=== PATIENT | male | born 1945 | race Caucasian/White ===

== ENCOUNTER 2020-04-22 15:27 | Observation (INO) ==
[2020-04-22 17:26] LABS: ABS Basophils 0.1 10^3/ul (0-0.2); ABS Eosinophils 0.2 10^3/ul (0-0.6); ABS Lymphocytes 1.5 10^3/ul (1.0-4.8); ABS Monocytes 1.3 10^3/ul (0-0.8); Eosinophil % 1.5 %; Hematocrit 42 % (42-52); Hemoglobin 14.9 g/dL (14.0-18.0); Lymphocyte % 15.4 %; Mean Corpuscular HGB Conc 35 g/dL (31-36); Mean Corpuscular Hemoglobin 32 pg (27-31); Mean Corpuscular Volume 89 fL (80-94); Mean Platelet Volume 7.4 fL (7.4-10.4); Platelet Count 310 10^3/uL (150-450); Red Blood Count 4.74 10^6 /uL (4.18-5.48); Red Cell Distribution Width 15 % (10-15)
[2020-04-22 17:40] LABS: Activated Partial Thrombo Time 29.5 seconds (26.0-38.0); INR 1.02 (0.82-1.09)
[2020-04-22 17:48] LABS: Troponin I 0.01 ng/mL (<0.03)
[2020-04-22 17:53] LABS: Albumin 4.2 g/dL (3.2-5.2); Albumin/Globulin Ratio 1.5 (1-3); BUN/Creatinine Ratio 14.8 (8-20); Calcium 9.9 mg/dL (8.6-10.3); EGFR African American 59.3 (>60); Globulin 2.8 g/dL (2-4); Potassium 3.6 mmol/L (3.5-5.0); Total Bilirubin 0.4 mg/dL (0.2-1.0)
[2020-04-22 18:26] LABS: Magnesium 1.7 mg/dL (1.9-2.7)
[2020-04-22] MEDS ORDERED: Magnesium Sulfate 2 gm BAG 2 GM/50 ML BAG IVPB ONE (18:40)
[2020-04-22] MEDS ORDERED: NS 0.9% 1000 ml BAG 1,000 ML IV SCH (19:00)
[2020-04-22] MEDS ORDERED: hydrALAZINE 20 mg/ml 1 ML Vial IV IV SLOW PU PRN (20:06)
[2020-04-22] MEDS ORDERED: Potassium Chlor 20 meq TAB.ER PO ONE (21:00)
[2020-04-22] MEDS: Heparin 5000 UNITS/ML 1 mL VIAL SUBCUT SCH (21:23)
[2020-04-22] MEDS ORDERED: Heparin 5000 UNITS/ML 1 mL VIAL SUBCUT SCH (22:00)
[2020-04-22 22:09] LABS: Troponin I 0.03 ng/mL (<0.03)
[2020-04-23 01:10] LABS: Troponin I 0.03 ng/mL (<0.03)
[2020-04-23] MEDS: Heparin 5000 UNITS/ML 1 mL VIAL SUBCUT SCH ×2 (05:46→13:52)
[2020-04-23 06:17] LABS: ABS Basophils 0.1 10^3/ul (0-0.2); ABS Eosinophils 0.2 10^3/ul (0-0.6); ABS Monocytes 1.2 10^3/ul (0-0.8); Eosinophil % 2.7 %; Hematocrit 41 % (42-52); Hemoglobin 14.4 g/dL (14.0-18.0); Lymphocyte % 23.1 %; Mean Corpuscular HGB Conc 35 g/dL (31-36); Mean Corpuscular Hemoglobin 31 pg (27-31); Mean Corpuscular Volume 89 fL (80-94); Mean Platelet Volume 7.8 fL (7.4-10.4); Platelet Count 292 10^3/uL (150-450); Red Cell Distribution Width 15 % (10-15); White Blood Count 8.6 10^3/uL (3.5-10.8)
[2020-04-23 06:35] LABS: Troponin I 0.02 ng/mL (<0.03)
[2020-04-23 06:37] LABS: BUN/Creatinine Ratio 15.5 (8-20); Calcium 9.1 mg/dL (8.6-10.3); EGFR African American 59.3 (>60); Magnesium 1.9 mg/dL (1.9-2.7); Potassium 3.8 mmol/L (3.5-5.0)
[2020-04-23] MEDS ORDERED: Perflutren Lipid Microsphere 3 ML VIAL ONE (08:04)
[2020-04-23 09:07] LABS: Creatine Kinase 115 U/L (10-223)
[2020-04-23 09:13] LABS: CKMB ng/mL 4.4 ng/mL (0.6-6.3)
[2020-04-23 09:13] LABS: CKMB ng/mL 4.3 ng/mL (0.6-6.3)
[2020-04-23] MEDS ORDERED: Regadenoson 0.4 MG/5 ML SYRINGE ONE (09:20)
[2020-04-23] MEDS ORDERED: Aminophylline 25 MG/ML VIAL ONE (09:21)
[2020-04-23] MEDS ORDERED: Nitroglycerin 0.2 mg/hr PATCH (5 mg) TRANSDERM SCH (13:00)
[2020-04-23 13:52] VITALS: BP 136/70
[2020-04-23] MEDS ORDERED: Nitro Patch/OINT Remove PATCH PATCH OFF SCH (21:00)
== END 2020-04-23 16:37 | disposition home or self-care (01) ==
LOC: MEDTELE 15:27 → ED 15:27 → MEDTELE 22:45
PROVIDERS: ADMIT Hospitalist; ATTEND Hospitalist

== ENCOUNTER 2023-07-13 20:48 | Inpatient (IN) ==
[2023-07-13] MEDS ORDERED: NORMOSOL-R pH 7.4 SEPSIS* BAG 2,190 ML IV ONE (21:27)
[2023-07-13 21:56] LABS: Hematocrit 40.4 % (38-53); Hemoglobin 13.8 g/dL (13.2-16.3); Mean Corpuscular Hemoglobin 30.7 pg (27-33); Mean Corpuscular Hgb Conc 34.2 g/dL (31-36); Mean Platelet Volume 8.2 fL (7.5-11.2); Platelet Count 202 10^3/uL (150-450); Red Blood Count 4.49 10^6/uL (4.06-5.63); Red Cell Distribution Width 15.3 % (12-17); White Blood Count 20.1 10^3/uL (3.6-10.2)
[2023-07-13 22:02] LABS: INR 2.37 (0.83-1.13)
[2023-07-13 22:12] LABS: Albumin 3.9 g/dL (3.2-5.2); Albumin/Globulin Ratio 1.3 (1-3); C Reactive Protein 307.42 mg/L (<8.01); Calcium 9.1 mg/dL (8.6-10.3); Creatinine, Serum 2.58 mg/dL (0.67-1.17); Potassium 3.2 mmol/L (3.5-5.0); Total Bilirubin 1.1 mg/dL (0.2-1.0); Total Protein 6.9 g/dL (6.4-8.9)
[2023-07-13 22:22] LABS: ABS Basophils 0.1 10^3/uL (0.0-0.1); ABS Lymphocytes 0.4 10^3/uL (1.0-4.8); ABS Monocytes 2.3 10^3/uL (0.0-1.1); ABS Neutrophils 17.3 10^3/uL (1.5-7.6); Lymphocyte % 2.2 %
[2023-07-14] MEDS ORDERED: Albuterol 2.5mg/3 ml (0.083%) NEB.SOLN INH ONE (00:33)
[2023-07-14 01:04] LABS: Urine Appearance Cloudy; Urine Bilirubin Negative (Negative); Urine Blood 3+ (Negative); Urine Color Amber; Urine Glucose Negative (Negative); Urine Ketones Negative (Negative); Urine Nitrite Negative (Negative); Urine Protein 3+(>=500 mg/dL) (Negative); Urine Specific Gravity 1.018 (1.002-1.030); Urine Urobilinogen Negative (Negative)
[2023-07-14] MEDS ORDERED: Albuterol (2.5 MG) 0.5 % CONC 0.5 ML NEB.SOLN INH ONE ×2 (01:07→02:00)
[2023-07-14 01:09] LABS: Urine Bacteria 1+ (Absent); Urine Granular Casts Present (Absent); Urine Red Blood Cell 3+(>10/hpf) (Absent); Urine Squamous Epithelial Cell Present (Absent); Urine White Blood Cell 1+(6-10/hpf) (Absent)
[2023-07-14 01:19] LABS: High Sensitivity Troponin 3 Hr 1078 pg/mL (<20)
[2023-07-14] MEDS ORDERED: Azithromycin 500 mg/250 ml NS 500 MG/250 ML BAG IVPB ONE (01:45)
[2023-07-14] MEDS ORDERED: cefTRIAXone 1 gm/50 mL D5W 1 GM/50 ML BAG IV ONE (01:45)
[2023-07-14 02:20] LABS: Creatine Kinase 38906 U/L (10-223)
[2023-07-14 08:49] LABS: Anion Gap 14 mmol/L (2-16); Blood Urea Nitrogen 31 mg/dL (6-24); CO2 Carbon Dioxide 22 mmol/L (22-32); Calcium 8.3 mg/dL (8.6-10.3); Chloride 96 mmol/L (101-111); Creatinine, Serum 2.45 mg/dL (0.67-1.17); Glucose 98 mg/dL (70-100); Potassium 3.2 mmol/L (3.5-5.0); Sodium 132 mmol/L (135-145); eGFR CKD-EPI 26.6 (>60)
[2023-07-14] MEDS ORDERED: Tiotropium Brom/Olodaterol MDI (ACUTE) INH SCH (09:00)
[2023-07-14 09:50] LABS: Creatine Kinase > 18000 U/L (10-223)
[2023-07-14] MEDS ORDERED: Albuterol/Ipratropium NEB.SOL (2.5/0.5 MG) 3 ML NEB.SOLN INH SCH ×2 (10:00→11:00)
[2023-07-14] MEDS ORDERED: Potassium EFFERVES 25 meq TAB PO ONE (11:56)
[2023-07-14] MEDS: methylPREDNISolone SOD SUCC 40 mg/ml 1 ml VIAL IV SCH ×2 (12:01→22:08)
[2023-07-14] MEDS: Albuterol/Ipratropium NEB.SOL (2.5/0.5 MG) 3 ML NEB.SOLN INH SCH ×2 (14:02→18:50)
[2023-07-14] MEDS ORDERED: Nicotine GUM 4MG FRUIT FLAVOR PO PRN (17:48)
[2023-07-14] MEDS: Nicotine PATCH 14 MG/24 HR PATCH TRANSDERM SCH (19:45)
[2023-07-15] MEDS ORDERED: cefTRIAXone 1 gm/50 mL D5W 1 GM/50 ML BAG IV SCH ×2 (02:00)
[2023-07-15] MEDS ORDERED: Azithromycin 500 mg/250 ml NS 500 MG/250 ML BAG IVPB SCH (02:00)
[2023-07-15] MEDS: Azithromycin 500 mg/250 ml NS 500 MG/250 ML BAG IVPB SCH (02:33)
[2023-07-15] MEDS: Albuterol/Ipratropium NEB.SOL (2.5/0.5 MG) 3 ML NEB.SOLN INH SCH ×2 (07:31→13:46)
[2023-07-15 08:56] LABS: Hemoglobin 13.2 g/dL (13.2-16.3); Mean Corpuscular Hemoglobin 30.6 pg (27-33); Mean Corpuscular Hgb Conc 33.8 g/dL (31-36); Mean Corpuscular Volume 90.5 fL (80-97); Platelet Count 208 10^3/uL (150-450); Red Blood Count 4.31 10^6/uL (4.06-5.63); Red Cell Distribution Width 15.3 % (12-17); White Blood Count 17.8 10^3/uL (3.6-10.2)
[2023-07-15] MEDS: Nicotine PATCH 14 MG/24 HR PATCH TRANSDERM SCH (09:07)
[2023-07-15 09:11] LABS: Anion Gap 13 mmol/L (2-16); Blood Urea Nitrogen 41 mg/dL (6-24); CO2 Carbon Dioxide 23 mmol/L (22-32); Chloride 95 mmol/L (101-111); Creatinine, Serum 1.96 mg/dL (0.67-1.17); Glucose 194 mg/dL (70-100); Magnesium 1.9 mg/dL (1.9-2.7); Potassium 3.7 mmol/L (3.5-5.0); Sodium 131 mmol/L (135-145); eGFR CKD-EPI 34.8 (>60)
[2023-07-15] MEDS ORDERED: methylPREDNISolone SOD SUCC 40 mg/ml 1 ml VIAL IV ONE (09:22)
[2023-07-15 09:28] LABS: Creatine Kinase 12737 U/L (10-223)
[2023-07-15 10:32] LABS: ALT 119 U/L (7-52); AST 301 U/L (13-39); Albumin 3.4 g/dL (3.2-5.2); Alkaline Phosphatase 78 U/L (35-149); Globulin 3.3 g/dL (2-4); Indirect Bilirubin 0.4 mg/dL (0.3-1.0); Total Protein 6.7 g/dL (6.4-8.9)
[2023-07-15 11:00] LABS: ABS Lymphocytes 0.3 10^3/uL (1.0-4.8); ABS Monocytes 0.9 10^3/uL (0.0-1.1); ABS Neutrophils 16.5 10^3/uL (1.5-7.6); Lymphocyte % 1.6 %
[2023-07-15] MEDS: Lidocaine PATCH 4% TOPICAL SCH ×2 (12:15→12:19)
[2023-07-15 15:38] LABS: Corrected Retic Count 0.4 % (0.5-1.5)
[2023-07-15 15:48] LABS: % Iron Saturation 10 % (15-55); .Transferrin 140 mg/dL (203-362); Iron < 20 ug/dL (50-212); Total Iron Binding Capacity 196 mcg/dL (250-450); Unsaturated Iron Binding 176 ug/dL
[2023-07-15] MEDS ORDERED: Senna TAB 8.6 mg TAB PO PRN (15:54)
[2023-07-16] MEDS: Azithromycin 500 mg/250 ml NS 500 MG/250 ML BAG IVPB SCH (02:32)
[2023-07-16 05:59] LABS: ABS Lymphocytes 0.3 10^3/uL (1.0-4.8); ABS Monocytes 1.2 10^3/uL (0.0-1.1); ABS Neutrophils 17.7 10^3/uL (1.5-7.6); Hematocrit 34.1 % (38-53); Hemoglobin 11.6 g/dL (13.2-16.3); Lymphocyte % 1.4 %; Mean Corpuscular Hemoglobin 30.5 pg (27-33); Mean Corpuscular Hgb Conc 34.1 g/dL (31-36); Mean Corpuscular Volume 89.4 fL (80-97); Mean Platelet Volume 8.1 fL (7.5-11.2); Platelet Count 211 10^3/uL (150-450); Red Blood Count 3.81 10^6/uL (4.06-5.63); Red Cell Distribution Width 15.1 % (12-17); White Blood Count 19.3 10^3/uL (3.6-10.2)
[2023-07-16 06:17] LABS: Albumin/Globulin Ratio 1.1 (1-3); Calcium 8.2 mg/dL (8.6-10.3); Creatinine, Serum 1.8 mg/dL (0.67-1.17); Globulin 2.7 g/dL (2-4); Magnesium 1.7 mg/dL (1.9-2.7); Potassium 3.9 mmol/L (3.5-5.0); Total Bilirubin 0.4 mg/dL (0.2-1.0); Total Protein 5.7 g/dL (6.4-8.9); eGFR CKD-EPI 38.5 (>60)
[2023-07-16 06:21] LABS: CKMB ng/mL 35.4 ng/mL (0.6-6.3)
[2023-07-16] MEDS: Lidocaine PATCH 4% TOPICAL SCH (10:57)
[2023-07-16] MEDS: Nicotine PATCH 14 MG/24 HR PATCH TRANSDERM SCH (10:58)
[2023-07-16] MEDS: Tiotropium Brom/Olodaterol MDI (ACUTE) INH SCH (11:17)
[2023-07-16 13:57] LABS: High Sensitivity Troponin 1 Hr 97 pg/mL (<20)
[2023-07-16] MEDS: Albuterol HFA INHALER 8 gm MDI INH PRN (20:43)
[2023-07-17 06:07] LABS: Hematocrit 36.9 % (38-53); Hemoglobin 12.5 g/dL (13.2-16.3); Mean Corpuscular Hemoglobin 30.6 pg (27-33); Mean Corpuscular Hgb Conc 33.9 g/dL (31-36); Mean Corpuscular Volume 90.5 fL (80-97); Mean Platelet Volume 8.1 fL (7.5-11.2); Platelet Count 250 10^3/uL (150-450); Red Blood Count 4.08 10^6/uL (4.06-5.63); Red Cell Distribution Width 15.2 % (12-17); White Blood Count 18.3 10^3/uL (3.6-10.2)
[2023-07-17 06:11] LABS: ABS Lymphocytes 0.5 10^3/uL (1.0-4.8); ABS Neutrophils 15.8 10^3/uL (1.5-7.6); Lymphocyte % 2.6 %
[2023-07-17 06:24] LABS: Calcium 8.5 mg/dL (8.6-10.3); Creatinine, Serum 1.82 mg/dL (0.67-1.17); Magnesium 1.7 mg/dL (1.9-2.7); Phosphorus 3.6 mg/dL (2.5-5.0)
[2023-07-17] MEDS: Tiotropium Brom/Olodaterol MDI (ACUTE) INH SCH (07:24)
[2023-07-17] MEDS: Lidocaine PATCH 4% TOPICAL SCH (10:31)
[2023-07-17] MEDS: Nicotine PATCH 14 MG/24 HR PATCH TRANSDERM SCH (10:31)
[2023-07-17] MEDS ORDERED: Magnesium Sulfate 2 gm BAG 2 GM/50 ML BAG IVPB ONE (11:05)
[2023-07-17] MEDS: Albuterol HFA INHALER 8 gm MDI INH PRN (20:52)
[2023-07-18 06:16] LABS: Calcium 8.4 mg/dL (8.6-10.3); Creatinine, Serum 1.56 mg/dL (0.67-1.17); Magnesium 1.9 mg/dL (1.9-2.7); Potassium 3.9 mmol/L (3.5-5.0); eGFR CKD-EPI 45.7 (>60)
[2023-07-18] MEDS: Tiotropium Brom/Olodaterol MDI (ACUTE) INH SCH (07:28)
[2023-07-18] MEDS: Nicotine PATCH 14 MG/24 HR PATCH TRANSDERM SCH (08:01)
[2023-07-18] MEDS: Lidocaine PATCH 4% TOPICAL SCH (08:01)
[2023-07-18] MEDS ORDERED: Dextran 70/Hypromellose Tears Eye Drops 15 ml BTL (for Artificials Tears) BOTH EYES PRN (22:10)
[2023-07-19] MEDS: Tiotropium Brom/Olodaterol MDI (ACUTE) INH SCH (07:17)
[2023-07-19] MEDS: Lidocaine PATCH 4% TOPICAL SCH (08:12)
[2023-07-19] MEDS: Nicotine PATCH 14 MG/24 HR PATCH TRANSDERM SCH (08:12)
[2023-07-19 08:30] LABS: Albumin/Globulin Ratio 1.3 (1-3); Creatinine, Serum 1.53 mg/dL (0.67-1.17); Globulin 2.4 g/dL (2-4); Magnesium 1.7 mg/dL (1.9-2.7); Potassium 3.8 mmol/L (3.5-5.0); Total Bilirubin 0.7 mg/dL (0.2-1.0); Total Protein 5.4 g/dL (6.4-8.9); eGFR CKD-EPI 46.8 (>60)
[2023-07-19] MEDS ORDERED: Albuterol/Ipratropium NEB.SOL (2.5/0.5 MG) 3 ML NEB.SOLN INH PRN (14:05)
[2023-07-19] MEDS: Albuterol HFA INHALER 8 gm MDI INH PRN ×2 (17:36→22:31)
[2023-07-20] MEDS: Tiotropium Brom/Olodaterol MDI (ACUTE) INH SCH (07:57)
[2023-07-20] MEDS: Lidocaine PATCH 4% TOPICAL SCH (10:05)
[2023-07-20] MEDS: Nicotine PATCH 14 MG/24 HR PATCH TRANSDERM SCH (10:07)
[2023-07-20 10:20] LABS: Rapid COVID-19 Molecular Undetected (Undetected)
[2023-07-20 12:07] VITALS: BP 162/86
== END 2023-07-20 12:47 | DRG 871 ==
LOC: EDBD → ED 20:48 → EDHOLD 20:48 → SUATTDRO 07-14 02:54 → MEDTELE 07-14 04:50 → MERGE 07-18 10:34
PROVIDERS: ADMIT Student in an Organized Health Care Education/Training Program; ATTEND Internal Medicine

== ENCOUNTER 2024-08-13 12:22 | Observation (INO) ==
[2024-08-13 13:29] LABS: ABS Basophils 0.1 10^3/uL (0.0-0.1); ABS Lymphocytes 0.8 10^3/uL (1.0-4.8); ABS Monocytes 1.2 10^3/uL (0.0-1.1); ABS Neutrophils 8.2 10^3/uL (1.5-7.6); ABS Nucleated RBC 0.01 10^3/ul; Eosinophil % 0.4 %; Hematocrit 39.7 % (38-53); Hemoglobin 13.6 g/dL (13.2-16.3); Lymphocyte % 7.3 %; Mean Corpuscular Hemoglobin 30.9 pg (27-33); Mean Corpuscular Hgb Conc 34.3 g/dL (31-36); Mean Platelet Volume 8.1 fL (7.5-11.2); Nucleated Red Blood Cells % 0.1 %/100WBC (0.0-0.8); Platelet Count 183 10^3/uL (150-450); Red Blood Count 4.41 10^6/uL (4.06-5.63); Red Cell Distribution Width 15.7 % (12-17); White Blood Count 10.3 10^3/uL (3.6-10.2)
[2024-08-13 13:51] LABS: Activated Partial Thrombo Time 33.7 seconds (26.0-38.0); INR 1.49 (0.85-1.14)
[2024-08-13 14:10] LABS: Albumin 4.1 g/dL (3.2-5.2); Albumin/Globulin Ratio 2.1 (1-3); C Reactive Protein 6.3 mg/L (<8.01); Calcium 9.2 mg/dL (8.6-10.3); Creatinine, Serum 1.58 mg/dL (0.67-1.17); Potassium 3.5 mmol/L (3.5-5.0); Total Bilirubin 1.2 mg/dL (0.2-1.0); Total Protein 6.1 g/dL (6.4-8.9); eGFR CKD-EPI 44.8 (>60)
[2024-08-13 15:00] LABS: High Sensitivity Troponin 1 Hr 34 pg/mL (<20)
[2024-08-13] MEDS: Furosemide 20 mg/2 ml IV VIAL IV SLOW PU ONE (15:00)
[2024-08-13] MEDS: nitroGLYCERIN DRIP 25,000 MCG/250 ML BTL IV SCH (15:44)
[2024-08-13] MEDS: Labetalol IV 5 MG/ML 20 ml VIAL IV PUSH ONE ×2 (16:22→20:30)
[2024-08-13 19:00] LABS: Urine Appearance Clear; Urine Bilirubin Negative (Negative); Urine Blood Negative (Negative); Urine Color Colorless; Urine Glucose Negative (Negative); Urine Ketones Negative (Negative); Urine Nitrite Negative (Negative); Urine Protein Trace (Negative); Urine Specific Gravity 1.006 (1.002-1.030); Urine Urobilinogen Negative (Negative); Urine pH 6.5 (5.0-8.0)
[2024-08-13] MEDS: Bumetanide IV 0.25 MG/ML 4 ml VIAL (1 mg) IV SLOW PU ONE (20:29)
[2024-08-14] MEDS: cloNIDine 0.1 MG PATCH 0.1 MG/24 HR 7 DAY PATCH TRANSDERM SCH (03:35)
[2024-08-14] MEDS: hydrALAZINE 20 mg/ml 1 ML Vial IV IV SLOW PU PRN (03:43)
[2024-08-14] MEDS: Furosemide 40 mg/4 ml IV VIAL IV ONE (05:23)
[2024-08-14] MEDS: Albuterol HFA INHALER 8 gm MDI INH PRN (05:24)
[2024-08-14] MEDS: Tiotropium Brom/Olodaterol MDI (ACUTE) INH SCH (07:39)
[2024-08-14 07:59] LABS: ABS Basophils 0.1 10^3/uL (0.0-0.1); ABS Eosinophils 0.2 10^3/uL (0.0-0.5); ABS Lymphocytes 1.1 10^3/uL (1.0-4.8); ABS Monocytes 1.5 10^3/uL (0.0-1.1); ABS Neutrophils 6.3 10^3/uL (1.5-7.6); ABS Nucleated RBC 0.01 10^3/ul; Eosinophil % 1.7 %; Hematocrit 42.8 % (38-53); Hemoglobin 14.8 g/dL (13.2-16.3); Lymphocyte % 12.3 %; Mean Corpuscular Hemoglobin 30.9 pg (27-33); Mean Corpuscular Hgb Conc 34.6 g/dL (31-36); Mean Corpuscular Volume 89.3 fL (80-97); Mean Platelet Volume 8.6 fL (7.5-11.2); Nucleated Red Blood Cells % 0.1 %/100WBC (0.0-0.8); Platelet Count 187 10^3/uL (150-450); Red Blood Count 4.79 10^6/uL (4.06-5.63); Red Cell Distribution Width 15.9 % (12-17); White Blood Count 9.1 10^3/uL (3.6-10.2)
[2024-08-14 08:18] LABS: Calcium 9.6 mg/dL (8.6-10.3); Creatinine, Serum 1.58 mg/dL (0.67-1.17); eGFR CKD-EPI 44.8 (>60)
[2024-08-14 09:01] LABS: Magnesium 1.5 mg/dL (1.9-2.7)
[2024-08-14] MEDS: CMCS:Alfuzosin ER 10 mg TAB.ER (NF) 10 MG TAB.ER PO SCH (09:28)
[2024-08-14] MEDS: Potassium EFFERVES 25 meq TAB PO ONE (09:46)
[2024-08-14] MEDS: Magnesium Sulfate 2 gm BAG 2 GM/50 ML BAG IVPB ONE (09:51)
[2024-08-14] MEDS: Sulfur Hexaflouride MICROSPHR 25 MG VIAL IV PRN (10:30)
[2024-08-14] MEDS: CMCS:Epleronone 25 mg TAB (NF) PO SCH (10:35)
[2024-08-14 18:45] LABS: Calcium 9.8 mg/dL (8.6-10.3); Creatinine, Serum 1.96 mg/dL (0.67-1.17); Potassium 4.3 mmol/L (3.5-5.0); eGFR CKD-EPI 34.6 (>60)
[2024-08-15 06:42] LABS: Hemoglobin 14.4 g/dL (13.2-16.3); Mean Corpuscular Hemoglobin 30.9 pg (27-33); Mean Corpuscular Hgb Conc 34.2 g/dL (31-36); Mean Corpuscular Volume 90.3 fL (80-97); Platelet Count 174 10^3/uL (150-450); Red Blood Count 4.65 10^6/uL (4.06-5.63); Red Cell Distribution Width 15.8 % (12-17); White Blood Count 6.8 10^3/uL (3.6-10.2)
[2024-08-15 07:11] LABS: Calcium 9.3 mg/dL (8.6-10.3); Creatinine, Serum 1.77 mg/dL (0.67-1.17); Magnesium 1.8 mg/dL (1.9-2.7); Potassium 3.7 mmol/L (3.5-5.0); eGFR CKD-EPI 39.1 (>60)
[2024-08-15] MEDS: Potassium Chlor 10 meq TAB PO ONE (09:23)
[2024-08-15] MEDS: Magnesium Sulfate IV 1GM/100ML 1 GM/100 ML BAG IV ONE (09:24)
[2024-08-15] MEDS: NS 0.9% 500 ml BAG 500 ML IV ONE (17:00)
[2024-08-16 07:49] LABS: Hemoglobin 13.9 g/dL (13.2-16.3); Mean Corpuscular Hemoglobin 30.7 pg (27-33); Mean Corpuscular Volume 90.2 fL (80-97); Mean Platelet Volume 8.1 fL (7.5-11.2); Platelet Count 182 10^3/uL (150-450); Red Blood Count 4.55 10^6/uL (4.06-5.63); Red Cell Distribution Width 15.6 % (12-17); White Blood Count 7.2 10^3/uL (3.6-10.2)
[2024-08-16 08:05] LABS: Creatinine, Serum 1.96 mg/dL (0.67-1.17); Magnesium 1.9 mg/dL (1.9-2.7); Potassium 4.2 mmol/L (3.5-5.0); eGFR CKD-EPI 34.6 (>60)
[2024-08-16] MEDS: Magnesium Sulfate IV 1GM/100ML 1 GM/100 ML BAG IV ONE (09:05)
[2024-08-16] MEDS ORDERED: PAIN RELIEVING RUB (MENTHOL/SALICYLATE) 1 APPLIC TUBE TOPICAL PRN (10:00)
[2024-08-16] MEDS: Lidocaine PATCH 5% PATCH TRANSDERM SCH (10:22)
[2024-08-16 18:06] VITALS: BP 169/65
== END 2024-08-16 18:25 | disposition home or self-care (01) ==
LOC: EDHOLD 12:22 → ED 12:22 → SUATTDRO 19:03 → MEDTELE 08-14 01:20
PROVIDERS: ADMIT Student in an Organized Health Care Education/Training Program; ATTEND Student in an Organized Health Care Education/Training Program

== ENCOUNTER 2024-11-10 14:59 | Inpatient (IN) ==
[2024-11-10] MEDS: Albuterol/Ipratropium NEB.SOL (2.5/0.5 MG) 3 ML NEB.SOLN INH ONE ×2 (15:26→17:57)
[2024-11-10] MEDS: methylPREDNISolone SOD SUCC 125 mg 2 ML VIAL IV ONE (16:00)
[2024-11-10] MEDS: cefTRIAXone 1 gm/50 mL D5W 1 GM/50 ML BAG IV ONE (16:00)
[2024-11-10] MEDS: Magnesium Sulfate 2 gm BAG 2 GM/50 ML BAG IVPB ONE (16:02)
[2024-11-10 16:12] LABS: Hematocrit 40.1 % (38-53); Hemoglobin 13.8 g/dL (13.2-16.3); Mean Corpuscular Hemoglobin 30.9 pg (27-33); Mean Corpuscular Hgb Conc 34.5 g/dL (31-36); Mean Corpuscular Volume 89.4 fL (80-97); Platelet Count 157 10^3/uL (150-450); Red Blood Count 4.48 10^6/uL (4.06-5.63); Red Cell Distribution Width 16.6 % (12-17); White Blood Count 11.4 10^3/uL (3.6-10.2)
[2024-11-10 16:14] LABS: INR 2.56 (0.85-1.14)
[2024-11-10 16:50] LABS: Albumin 3.8 g/dL (3.2-5.2); Albumin/Globulin Ratio 1.7 (1-3); C Reactive Protein 146.06 mg/L (<8.01); Calcium 8.4 mg/dL (8.6-10.3); Creatinine, Serum 1.71 mg/dL (0.67-1.17); Globulin 2.3 g/dL (2-4); Magnesium 1.4 mg/dL (1.9-2.7); Potassium 3.2 mmol/L (3.5-5.0); Total Protein 6.1 g/dL (6.4-8.9); eGFR CKD-EPI 40.7 (>60)
[2024-11-10 16:55] LABS: ABS Lymphocytes 0.7 10^3/uL (1.0-4.8); ABS Neutrophils 8.6 10^3/uL (1.5-7.6); Eosinophil % 0.1 %; Lymphocyte % 6.2 %
[2024-11-10] MEDS: Iodixanol 320 (CONTRAST) 100 ML SDV IV ONE (17:25)
[2024-11-10 17:27] LABS: High Sensitivity Troponin 1 Hr 75 pg/mL (<20)
[2024-11-10] MEDS: Nitro 2% OINT (Nitroglycerin) 1 INCH/PAK TOPICAL ONE (17:33)
[2024-11-10] MEDS: Furosemide 40 mg/4 ml IV VIAL IV SLOW PU ONE (17:33)
[2024-11-10] MEDS: Acetylcysteine INHALATION SOL 200 MG/ML NEB.SOLN 10 ML INH ONE (17:57)
[2024-11-10 20:03] LABS: Urine Appearance Clear; Urine Bilirubin Negative (Negative); Urine Blood 1+ (Negative); Urine Color Colorless; Urine Glucose Negative (Negative); Urine Ketones Negative (Negative); Urine Nitrite Negative (Negative); Urine Protein 1+ (>=30 mg/dL) (Negative); Urine Specific Gravity 1.014 (1.002-1.030); Urine Urobilinogen Negative (Negative)
[2024-11-10 20:09] LABS: Urine Bacteria Absent /HPF (Absent); Urine Red Blood Cell 2+(6-10/hpf) /HPF (0-Trace); Urine White Blood Cell Trace(0-5/hpf) /HPF (0-Trace)
[2024-11-10] MEDS ORDERED: Polyethylene Glycol 3350 17 GM PACKET PO PRN (21:21)
[2024-11-10] MEDS ORDERED: Senna TAB 8.6 mg TAB PO PRN (21:21)
[2024-11-10] MEDS ORDERED: Ondansetron 4 mg VIAL 2 MG/ML 2 ml VIAL IV PRN (21:21)
[2024-11-10] MEDS ORDERED: Magnesium Hydroxide LIQ 30 ML UDC PO PRN (21:21)
[2024-11-10] MEDS ORDERED: Sulfur Hexaflouride MICROSPHR 25 MG VIAL IV PRN (21:23)
[2024-11-10] MEDS: Potassium Chloride LIQUID 20 MEQ/15 ML LIQUID PO ONE (21:43)
[2024-11-10] MEDS: Azithromycin 500 mg/250 ml NS 500 MG/250 ML BAG IVPB ONE (21:45)
[2024-11-10] MEDS ORDERED: methylPREDNISolone SOD SUCC 40 mg/ml 1 ml VIAL IV SCH (22:00)
[2024-11-10] MEDS ORDERED: Tiotropium Brom/Olodaterol MDI (ACUTE) INH SCH (22:00)
[2024-11-11] MEDS: KCL 20 MEQ/100 ML IVPREMIX 20 MEQ/100 ML BAG IV SCH (00:55)
[2024-11-11] MEDS: Albuterol/Ipratropium NEB.SOL (2.5/0.5 MG) 3 ML NEB.SOLN INH SCH (01:03)
[2024-11-11] MEDS: methylPREDNISolone SOD SUCC 40 mg/ml 1 ml VIAL IV SCH (05:37)
[2024-11-11 06:13] LABS: ABS Lymphocytes 0.2 10^3/uL (1.0-4.8); ABS Monocytes 0.4 10^3/uL (0.0-1.1); ABS Neutrophils 6.9 10^3/uL (1.5-7.6); Hematocrit 38.5 % (38-53); Hemoglobin 13.4 g/dL (13.2-16.3); Lymphocyte % 3.2 %; Mean Corpuscular Hemoglobin 31.1 pg (27-33); Mean Corpuscular Hgb Conc 34.8 g/dL (31-36); Mean Corpuscular Volume 89.3 fL (80-97); Nucleated Red Blood Cells % 0.1 %/100WBC (0.0-0.8); Platelet Count 150 10^3/uL (150-450); Red Blood Count 4.31 10^6/uL (4.06-5.63); Red Cell Distribution Width 16.2 % (12-17); White Blood Count 7.6 10^3/uL (3.6-10.2)
[2024-11-11 06:35] LABS: Calcium 8.5 mg/dL (8.6-10.3); Creatinine, Serum 1.7 mg/dL (0.67-1.17); Magnesium 1.7 mg/dL (1.9-2.7); Potassium 3.9 mmol/L (3.5-5.0)
[2024-11-11] MEDS: Cholecalciferol (VIT D3) 1,000 unit TAB PO SCH (10:56)
[2024-11-11] MEDS: Calcium/Vitamin D TAB 250/125 TAB PO SCH (10:57)
[2024-11-11] MEDS: CMCS:Alfuzosin ER 10 mg TAB.ER (NF) 10 MG TAB.ER PO SCH (10:57)
[2024-11-11] MEDS: Pneumococcal 20-Valent Conj 0.5 ML SYR Vaccine IM ONE (14:27)
[2024-11-11] MEDS: Influenza Vaccine *TRI* 2024-25* 0.5 ML SYRINGE IM ONE (14:28)
[2024-11-11] MEDS: Magnesium Sulfate 2 gm BAG 2 GM/50 ML BAG IVPB ONE (14:30)
[2024-11-11] MEDS: Furosemide 20 mg/2 ml IV VIAL IV SLOW PU ONE (14:34)
[2024-11-11] MEDS: Magnesium Sulfate IV 1GM/100ML 1 GM/100 ML BAG IV ONE (16:17)
[2024-11-11] MEDS: Dextran 70/Hypromellose Tears Eye Drops 15 ml BTL (for Artificials Tears) BOTH EYES PRN (17:24)
[2024-11-11] MEDS: cefTRIAXone 1 gm/50 mL D5W 1 GM/50 ML BAG IV SCH (17:26)
[2024-11-11] MEDS: Azithromycin 250 MG in NS 0.9% 250 ml 250 ML IVPB SCH (20:35)
[2024-11-11] MEDS: Tiotropium Brom/Olodaterol MDI (ACUTE) INH SCH (20:38)
[2024-11-11] MEDS ORDERED: Tiotropium Brom/Olodaterol MDI (ACUTE) INH SCH (21:00)
[2024-11-12 05:37] LABS: Hematocrit 36.6 % (38-53); Hemoglobin 12.4 g/dL (13.2-16.3); Mean Corpuscular Hemoglobin 30.2 pg (27-33); Mean Corpuscular Hgb Conc 33.8 g/dL (31-36); Mean Corpuscular Volume 89.5 fL (80-97); Mean Platelet Volume 8.1 fL (7.5-11.2); Platelet Count 165 10^3/uL (150-450); Red Blood Count 4.09 10^6/uL (4.06-5.63); Red Cell Distribution Width 16.4 % (12-17); White Blood Count 14.1 10^3/uL (3.6-10.2)
[2024-11-12 06:06] LABS: Calcium 8.6 mg/dL (8.6-10.3); Creatinine, Serum 1.66 mg/dL (0.67-1.17); Magnesium 2.2 mg/dL (1.9-2.7); Potassium 3.7 mmol/L (3.5-5.0); eGFR CKD-EPI 42.2 (>60)
[2024-11-12 14:11] VITALS: BP 164/94
[2024-11-12] MEDS: Azithromycin 250 MG in NS 0.9% 250 ml 250 ML IVPB ONE (15:44)
[2024-11-12] MEDS: Albuterol HFA INHALER 8 gm MDI INH PRN (16:02)
[2024-11-12] MEDS ORDERED: Albuterol/Ipratropium NEB.SOL (2.5/0.5 MG) 3 ML NEB.SOLN INH SCH (19:00)
== END 2024-11-12 17:00 | disposition home or self-care (01) | DRG 871 ==
LOC: ED 14:59 → EDHOLD 14:59 → SSU 22:12
PROVIDERS: ADMIT Student in an Organized Health Care Education/Training Program; ATTEND Internal Medicine